=== PATIENT | female | born 1960 | race Caucasian/White ===

== ENCOUNTER 2016-11-26 11:33 | Emergency (ER) | payer OTHER ==
[~2016-11-26] VITALS: Ht 175.3 cm; Wt 100.0 kg
[~2016-11-26 11:33] MED LIST: IBUP-232 PO; Z.0.NO CURRENT MEDS
[2016-11-26 11:34] VITALS: BP 155/89; PULSE 78; RESP 20; TEMP 98.2; O2SAT 96
--- NOTE | 2016-11-26 11:56 | PD ---
Physical Exam Time Seen by Provider: 11:54 Narrative 56yo F sent by Dr. Wilde for U/S of R leg due to pain since Saturday. r/o DVT. Denies chest pain, SOB. Hx heart arrhythmia. Patient seen in triage. Awaiting bed placement. VS reviewed. Data Data Last Documented VS Vital Signs Date Time Temp Pulse Resp B/P Pulse Ox O2 Delivery O2 Flow Rate FiO2 11/26/16 11:34 98.2 78 20 155/89 96 Room Air MDM Supervised Visit with OPAL: Kenya Villanueva Nov 26, 2016 11:56
[2016-11-26 12:11] VITALS: BP 168/91; PULSE 91; RESP 18
--- NOTE | 2016-11-26 12:40 | RADRPT ---
EXAM DATE/TIME: 11/26/2016 12:09 [facility] COMPARISON: No previous studies available for comparison. INDICATIONS : Right leg pain/swelling. MEDICAL HISTORY : Reading glasses. Cardiomegly. Irregular heart rhythm. Chest pain. Lymphoma. Cervical cancer. SURGICAL HISTORY : Hysterectomy. Splenectomy. Left lower lobectomy. Left lower meniscus repair. Skin cancer removed. ENCOUNTER: Initial ACUITY: 4 - 6 days PAIN SCORE: 8/10 LOCATION: Right leg. TECHNIQUE: Venous ultrasound of the leg was performed from the inguinal ligament to the proximal calf. Real-lamont e, color Doppler and spectral tracing, compression and augmentation techniques were used. FINDINGS: There is normal compressibility of the deep venous system from the inguinal region to the proximal ca lf. No echogenic clot is seen in the lumen of the common femoral, femoral, popliteal, and posterior tibial veins. There is a normal response of the venous system to proximal and distal augmentation an d respiration. CONCLUSION: No DVT is identified in the right lower extremity. Bk Smith MD on November 26, 2016 at 12:37 Board Certified Radiologist. This report was verified electronically.
[2016-11-26 13:42] VITALS: BP 135/78; PULSE 79; RESP 18; O2SAT 97
--- NOTE | 2016-11-26 13:51 | PD ---
HPI Chief Complaint: Medical Clearance Time Seen by Provider: 12:10 Travel History International Travel<30 days: No Contact w/Intl Traveler<30days: No Traveled to known affect area: No History of Present Illness HPI Patient is a 56-year-old female who presents to emergency room for evaluation of possible DVT. Patient reports that she has been having increased right- sided leg cramping for the past 3 days, reports that she was sent to the emergency room by Dr. Wilde for an ultrasound of her lower extremity. Denies history of DVT or PE in the past. Patient denies any chest pain or shortness breath at this time. Patient with no recent travels. PFSH Past Medical History Depression: Yes Heart Rhythm Problems: Yes Cancer: Yes (lymphoma, cervical cancer) Cardiac Catheterization: Yes Cardiomyopathy: Yes Cardiovascular Problems: Yes (cardiomegly, irregular heart rhythm ) High Cholesterol: No Chest Pain: Yes Congestive Heart Failure: No Diabetes: No Diminished Hearing: No Glaucoma: No Hepatitis: No Hiatal Hernia: No Hypertension: No Integumentary: Yes (SKIN CA REMOVED RECENTLY) Myocardial Infarction: No Thyroid Disease: No Tetanus Vaccination: < 5 Years Influenza Vaccination: No ?: Not Para: 1 Past Surgical History Abdominal Surgery: Yes (spleenectomy) Coronary Artery Bypass Graft: No Genitourinary Surgery: Yes (total hysterectomy) Hysterectomy: Yes (TOTAL) Thoracic Surgery: Yes (left lower lobectomy) Other Surgery: Yes Social History Alcohol Use: Yes (occ glass of wine) Tobacco Use: No Substance Use: No Allergies-Medications (Allergen,Severity, Reaction): Coded Allergies: No Known Allergies (Verified , 11/26/16) Reported Meds & Prescriptions Reported Meds & Active Scripts Active No Active Prescriptions or Reported Medications Review of Systems General / Constitutional: No: Fever Eyes: No: Visual changes HENT: No: Headaches Cardiovascular: No: Chest Pain or Discomfort Respiratory: No: Shortness of Breath Gastrointestinal: No: Abdominal Pain Genitourinary: No: Dysuria Musculoskeletal: Positive: Cramping (right calf cramping), No: Pain Skin: No Rash Neurologic: No: Weakness Psychiatric: No: Depression Endocrine: No: Polydipsia Hematologic/Lymphatic: No: Easy Bruising Physical Exam Narrative GENERAL: No acute distress, nontoxic SKIN: Focused skin assessment warm/dry. HEAD: Atraumatic. Normocephalic. EYES: Pupils equal and round. No scleral icterus. No injection or drainage. ENT: No nasal bleeding or discharge. Mucous membranes pink and moist. NECK: Trachea midline. No JVD. CARDIOVASCULAR: Regular rate and rhythm. No murmur appreciated. RESPIRATORY: No accessory muscle use. Clear to auscultation. Breath sounds equal bilaterally. GASTROINTESTINAL: Abdomen soft, non-tender, nondistended. Hepatic and splenic margins not palpable. MUSCULOSKELETAL: No obvious deformities. No clubbing. No cyanosis. No edema. Patient with cramping to her right calf NEUROLOGICAL: Awake and alert. No obvious cranial nerve deficits. Motor grossly within normal limits. Normal speech. PSYCHIATRIC: Appropriate mood and affect; insight and judgment normal. Data Data Last Documented VS Vital Signs Date Time Temp Pulse Resp B/P Pulse Ox O2 Delivery O2 Flow Rate FiO2 11/26/16 13:42 79 18 135/78 97 Room Air 11/26/16 11:34 98.2 Orders Us Leg Venous Doppler (11/26/16 ) Basic Metabolic Panel (Bmp) (11/26/16 13:22) Tibia/Fibula (Ap/Lat) (11/26/16 ) Labs Laboratory Tests Test 11/26/16 13:50 Sodium Level 140 MEQ/L Potassium Level 4.1 MEQ/L Chloride Level 105 MEQ/L Carbon Dioxide Level 28.4 MEQ/L Anion Gap 7 MEQ/L Blood Urea Nitrogen 14 MG/DL Creatinine 0.71 MG/DL Estimat Glomerular Filtration 85 ML/MIN Rate Random Glucose 90 MG/DL Calcium Level 10.2 MG/DL [facility] Medical Decision Making Medical Screen Exam Complete: Yes Emergency Medical Condition: Yes Interpretation(s) Vital Signs Date Time Temp Pulse Resp B/P Pulse Ox O2 Delivery O2 Flow Rate FiO2 11/26/16 13:42 79 18 135/78 97 Room Air 11/26/16 12:11 91 18 168/91 Room Air 11/26/16 12:11 91 18 11/26/16 11:34 98.2 78 20 155/89 96 Room Air Last Impressions Lower Extremity Ultrasound 11/26/16 0000 Signed Impressions: Service Date/Time: Saturday, November 26, 2016 12:09 - CONCLUSION: No DVT is identified in the right lower extremity. Bk Smith MD Differential Diagnosis dvt, electrolyte abnormality Narrative Course Patient is a 56-year-old female who presents to emergency room for evaluation of possible DVT. Patient has been having increased cramping and pain to her right calf for the past 3 days, patient with no history of DVT in the past. Last Impressions Lower Extremity Ultrasound 11/26/16 0000 Signed Impressions: Service Date/Time: Saturday, November 26, 2016 12:09 - CONCLUSION: No DVT is identified in the right lower extremity. Bk Smith MD CBC & BMP Diagram 11/26/16 13:50 Last Impressions Tibia/Fibula X-Ray 11/26/16 0000 Signed Impressions: Service Date/Time: Saturday, November 26, 2016 14:04 - CONCLUSION: Negative for fracture or dislocation. Follow up in 7-10 days is suggested if symptoms persist. Cassius Laughlin MD FACR Lower Extremity Ultrasound 11/26/16 0000 Signed Impressions: Service Date/Time: Saturday, November 26, 2016 12:09 - CONCLUSION: No DVT is identified in the right lower extremity. Bk Smith MD Reviewed all studies with patient in detail. Patient will follow-up with her primary care doctor and return to emergency room as needed. Understands need for repeat of sudden 1 week if swelling and pain persists Diagnosis Primary Impression: Leg cramping Patient Instructions: General Instructions Additional Instructions: Please follow-up with Dr. Andry riddle in the office Return to the emergency room as needed Please have your ultrasound repeated in 1 week if swelling and pain persists Scripts No Active Prescriptions or Reported Meds Nichole Driver DO Nov 26, 2016 13:51
--- NOTE | 2016-11-26 14:05 | RADRPT ---
EXAM DATE/TIME: 11/26/2016 14:04 [facility] COMPARISON: No previous studies available for comparison. INDICATIONS : Right lower leg pain; no known injury. MEDICAL HISTORY : None. SURGICAL HISTORY : None. ENCOUNTER: Initial ACUITY: 4 - 6 days PAIN SCORE: 7/10 LOCATION: Right lower leg. FINDINGS: Two view examination of the right tibia demonstrates no evidence of fracture or dislocation. Bony mi neralization is normal. The soft tissue structures are intact. CONCLUSION: Negative for fracture or dislocation. Follow up in 7-10 days is suggested if symptoms persist. Cassius Laughlin MD FACR on November 26, 2016 at 14:02 Board Certified Radiologist. This report was verified electronically.
[2016-11-26 14:20] LABS: BICARBONATE 28.4 MEQ/L (21.0-32.0); POTASSIUM 4.1 MEQ/L (3.5-5.1)
[2016-11-26 16:15] VITALS: BP 129/72
== END 2016-11-26 16:39 | disposition home or self-care (01) ==
LOC: NEPE 11:33
DX: R25.2 Cramp and spasm (principal); F32.9 Major depressive disorder, single episode, unspecified; I42.9 Cardiomyopathy, unspecified
CPT/HCPCS: 73590; 80048; 93971; 99285